=== PATIENT | male | born 1985 | race Caucasian/White ===

== ENCOUNTER → 2020-05-16 11:52 | Outpatient (BNVA) | payer SELFPAY | PROVIDERS: Visit Provider Nurse Practitioner Family | DX: R53.83 Other fatigue (principal); Z72.51 High risk heterosexual behavior; Z13.6 Encounter for screening for cardiovascular disorders; J45.909 Unspecified asthma, uncomplicated; Z20.5 Contact with and (suspected) exposure to viral hepatitis; R06.02 Shortness of breath; I44.7 Left bundle-branch block, unspecified; J45.41 Moderate persistent asthma with (acute) exacerbation | CPT/HCPCS: 80053; 80061; 82306; 82607; 84403; 84443; 85025; 86592; 86705; 86706; 86709; 86803; 87340; 87806 ==

== ENCOUNTER 2024-04-23 10:25 | Emergency (ER) | payer SELFPAY ==
--- NOTE | 2024-04-23 10:29 | XR_ITS ---
WS: [id number] XR shoulder RT min 2V* [id number] REASON FOR EXAM: pain FINDINGS: No fracture or focal bone lesion. The acromioclavicular joint space is intact. There is mild subchondral sclerosis and osteophytosis. The glenohumeral joint space is not well demonstrated. There does appear to be some narrowing with mild to moderate subchondral sclerosis of the glenoid and mild osteophytosis of the humeral head. XR/XR shoulder RT min 2V* [id number] IMPRESSION: Osteoarthritis of the glenohumeral joint above and certain severity possibly mo derate. Mild osteoarthritis of the acromioclavicular joint. No acute abnormality
[2024-04-23 10:30] VITALS: BP 136/89; PULSE 73; TEMP 36.5; O2SAT 99; BMI 30.7
--- NOTE | 2024-04-23 11:18 | W.ED.UPPEXIN ---
HPI - Extremity Injury (Upper) General: Chief Complaint: Extremity Injury, Upper Stated Complaint: right shoulder pain Time Seen by Provider: 04/23/24 10:59 Source: patient Mode of arrival: ambulatory Limitations: no limitations History of Present Illness: 38-year-old male presents to the ER complaining of right shoulder pain. Patient began noticing pain in the right shoulder on Tuesday and today he was throwing heavy logs and heard two pops in his right shoulder and immediately began having pain. Some mild parathesias to right arm. No color/temp changes noted. MD complaint: injury to: right and shoulder Onset (ago): hour(s) Other Extremity Injury: Right: arm and shoulder Other injuries: none Place: home Severity: moderate Severity scale (1-10): 6 Relieving factors: none Exacerbating factors: movement of extremity Associated symptoms: Reports no associated symptoms; Denies neck pain or weakness in extremities Related Data Previous Rx's ?Medication ?Instructions ?Recorded diclofenac sodium 50 mg 50 mg PO Q12H PRN pain #20 tabs 04/23/24 tablet,delayed release methylprednisolone 4 mg tablets in See Rx Instructions PO .COMPLEX 04/23/24 a dose pack (Medrol (Syd)) #21 ea Allergies Allergy/AdvReac Type Severity Reaction Status Date / Time No Known Allergies Allergy Verified 04/23/24 10:34 Review of Systems Const: Denies: fever(s), chills or body aches Eyes: Denies: change in vision Card: Denies: chest pain or palpitations Resp: Denies: dyspnea GI: Denies: abdominal pain Musc: Reports: joint pain (R shoulder) and limited range of motion (R shoulder); Denies: neck pain, back pain, extremity pain, extremity swelling, joint swelling, joint redness, joint warmth, joint stiffness or muscle cramps Neuro: Denies: headache(s), numbness in extremities, weakness in extremities or sensory changes PFSH ED PFSH: Medical History No active medical problems Surgical History No history of previous surgery Family History Mother Cancer Denies family history of Diabetes Hypertension Stroke Social History Smoking and tobacco/nicotine status: current every day tobacco/nicotine user Alcohol intake: never Substance/Drug Use: never Adopted: No Lives independently: Yes Household members: spouse Housing: House Marital status: Number of children: 4 Number of grandchildren: 1 Highest education level completed: 9th Grade service: No Current occupational status: employed Pets and animals: Yes Current gender identity: Male Physical Exam Const: COMMON NORMALS: no acute distress, average body habitus, patient oriented x3, no limitations, healthy appearing, alert and well nourished GENERAL APPEARANCE: cooperative ORIENTATION/CONSCIOUSNESS: Yes awake, Yes oriented to person, Yes oriented to place and Yes oriented to time Neck/C-Spine: COMMON NORMALS: full ROM GENERAL: Yes normal visual inspection CERVICAL SPINE: Yes cervical ROM normal, No Cervical spine tenderness and No Paracervical muscle tenderness Chest: COMMONS NORMALS: normal inspection of the chest Resp: COMMON NORMALS: clear to auscultation bilaterally EFFORT & INSPECTION: Yes able to speak in complete sentences AUSCULTATION: clear to auscultation bilaterally, no crackles and no rales Cardio: COMMON NORMALS: regular rate and regular rhythm RATE: regular rate RHYTHM: regular rhythm Back/Pelvis: COMMON NORMALS: thoracic and lumbar spine normal to inspection and no thoracic nor lumbar tenderness Extremity: COMMON NORMALS: capillary refill normal GENERAL: Yes normal exam except as noted RIGHT UPPER EXTREMITY: Yes shoulder joint (Right shoulder pain with palpation and ROM, bilateral radial pulses intact) Right shoulder: Yes palpation, Yes Right shoulder joint ROM exam (limited due to pain) and Yes Right shoulder joint neurovascular exam (normal) Neuro: COMMON NORMALS: patient oriented x3, moves all extremities, no focal motor deficits and no sensory deficits noted SENSORIUM/ORIENTATION: Yes alert, Yes oriented to person, Yes oriented to place and Yes oriented to time Course Vital Signs: Vital signs: Vital Signs Temperature 97.7 F 04/23/24 10:30 Pulse Rate 65 04/23/24 11:25 Respiratory Rate 18 04/23/24 11:25 Blood Pressure 144/96 04/23/24 11:25 Pulse Oximetry 98 04/23/24 11:25 Oxygen Delivery Me thod Room Air 04/23/24 10:30 MDM - Extremity Injury (Upper) Medical Decision Making XR showing no acute abnormalities. Will have case management set him up with PCP for further evaluation. May require MRI/physical therapy if symptoms do not improve. Will place on steroids/NSAIDS. Recommend ice/heat. Red flag symptoms with the patient such as fever, chills, pain out of proportion, complete loss of muscle strength discussed. Medical Records I reviewed the patient's medical records. Lab Data I reviewed the patient's lab results. Radiology Impressions Shoulder X-Ray 04/23/24 10:29 IMPRESSION: Osteoarthritis of the glenohumeral joint above and certain severity possibly moderate. Mild osteoarthritis of the acromioclavicular joint. No acute abnormality All radiology interpretation(s) finalized by discharge Discharge Plan Discharge Patient Disposition: Home Clinical Impression: Injury of right shoulder Qualifiers: Encounter type: initial encounter Qualified Code(s): S49.91XA - Unspecified injury of right shoulder and upper arm, initial encounter Condition: Stable Prescriptions: New diclofenac sodium 50 mg tablet,delayed release (DR/EC) 50 mg PO Q12H PRN (Reason: pain) Qty: 20 0RF methylprednisolone [Medrol (Syd)] 4 mg tablets,dose pack See Rx Instructions .ROUTE .COMPLEX Qty: 21 0RF Rx Instructions: orally per package directions Discharge Orders: Discharge ED (Routine); Ordered 04/23/24 Ordered By: Joyce Mclain Activity Restrictions/Additional Instructions: As we discussed, we will place you on anti-inflammatories and steroids. You may alternate ice and heat to help with your shoulder pain. Case management should contact you shortly to help set you up with your follow-up appointment with primary care for further evaluation of your shoulder pain. If this does not improve you may require additional evaluation including further imaging or physical therapy. Print Language: Belarusian Coding Level of Care Code ED Injection Molding Machine Offbearer for Hannah Johnston
[2024-04-23 11:25] VITALS: BP 144/96; PULSE 65; RESP 18; O2SAT 98
[2024-04-23 12:04] VITALS: BP 131/92; PULSE 62; RESP 18; O2SAT 97
--- NOTE | 2024-04-25 09:08 | DCPLANNER ---
sandra uribe to establish PCP
== END 2024-04-23 12:05 | disposition home or self-care (01) ==
PROVIDERS: Emergency Provider Physician Assistant
DX: S49.91XA Unspecified injury of right shoulder and upper arm, initial encounter (principal); Z72.0 Tobacco use; X50.0XXA Overexertion from strenuous movement or load, initial encounter
CPT/HCPCS: 73030; 99283

== ENCOUNTER 2025-01-20 11:55 | Emergency (ER) | payer SELFPAY ==
[2025-01-20 12:12] VITALS: BP 136/96; PULSE 90; RESP 18; TEMP 36.7; O2SAT 99; BMI 27.3
--- NOTE | 2025-01-20 12:18 | XRR_ITS ---
PROCEDURE INFORMATION: Exam: XR Right Foot Exam date and time: 01/20/2025 12:18 PM Age: 39 years old Clinical indication: Injury or trauma; Other: Stepped on a board with screws in it; Swelling (edema); Foot; Right TECHNIQUE: Imaging protocol: Radiologic exam of the right foot. Views: 3 or more views. COMPARISON: No relevant prior studies available. FINDINGS: Bones/joints: There is no fracture. Soft tissues: There is no foreign body. The soft tissues are unremarkable. XR/XR foot RT min 3V* [id number] IMPRESSION: No acute process
--- NOTE | 2025-01-20 12:18 | ED_ITS ---
HPI - Extremity Problem 2 General: Chief complaint: Extremity Injury, Lower Stated complaint: R foot pain Time Seen by Provider: 01/20/25 12:12 Source: patient Mode of arrival: ambulatory Limitations: no limitations History of Present Illness: 39-year-old male states that he had step ped on a board with screws in and on Tuesday. States he is wearing shoes had for puncture wound to bottom of his foot states he had some redness pain and increased swelling since then. States his pain is 8 out of 10. States he is unable to bear any weight on it. He denies any fevers. Related Data Previous Rx's ?Medication ?Instructions ?Recorded diclofenac sodium 50 mg 50 mg PO Q12H PRN pain #20 t abs 04/23/24 tablet,delayed release methylprednisolone 4 mg tablets in See Rx Instructions PO .COMPLEX 04/23/24 a dose pack (Medrol (Syd)) #21 ea cephalexin 500 mg capsule 500 mg PO TID 7 days #21 cap s 01/20/25 hydrocodone 5 mg-acetaminophen 325 1 tab PO Q6H PRN pa in #14 tabs 01/20/25 mg tablet sulfamethoxazole 800 1 tab PO BID 10 days #20 tab s 01/20/25 mg-trimethoprim 160 mg tablet (Bactrim DS) Allergies Allergy/AdvReac Type Severity Reaction Status Date / Time No Known Allergies Allergy Verified 04/23/24 10:34 Review of Systems 2 Musc: Reports: extremity pain PFSH ED 2 PFSH: Medical History No active medical problems Surgical History No history of previous surgery Family History Mother Cancer Denies family history of Diabetes Hypertension Stroke Social History Smoking and tobacco/nicotine status: current every day tobacco/nicotine user Alcohol intake: never Substance/Drug Use: never Adopted: No Lives independently: Yes Household members: spouse Housing: House Marital status: Number of children: 4 Number of grandchildren: 1 Highest education level completed: 9th Grade service: No Current occupational status: employed Pets and animals: Yes Current gender identity: Male Physical Exam 2 Const: COMMON NORMALS: no acute distress, patient oriented x3 and healthy appearing HENMT: COMMON NORMALS: normocephalic and atraumatic HEAD & SCALP: n ormocephalic and atraumatic Neck/C-Spine: COMMON NORMALS: full ROM and supple Chest: COMMONS NORMALS: normal inspection of the chest Resp: COMMON NORMALS: normal respiratory effort Cardio: COMMON NORMALS: regular rate, regular rhythm and No murmurs present (Cardio) RATE: regular rate RHYTHM: regular rhythm Extremity: COMMON NORMALS: full ROM NARRATIVE EXTREMITY EXAM: 4 puncture wounds to plantar surface of right foot does have swelling to the foot along with erythema Neuro: COMMON NORMALS: patient oriented x3, moves all extremities and no focal motor deficits Psych: COMMON NORMALS: mental status grossly normal, Normal thought process present and cooperative THOUGHT PROCESS: Normal thought process present Skin: COMMON NORMALS: no rashes or lesions noted GENERAL SKIN EXAM: no rashes or lesions noted Course 2 Vital Signs: Vital signs: Vital Signs Temperature 98.1 F 01/20/25 12:12 Pulse Rate 90 01/20/25 12:12 Respiratory Rate 18 01/20/25 12:12 Blood Pressure 136/96 01/20/25 12:12 Pulse Oximetry 99 01/20/25 12:12 Oxygen Delivery Me thod Room Air 01/20/25 12:12 MDM - Extremity (Nontraumatic) Medical Decision Making Patient presents after stepping on screws to his right foot. He was wearing his shoes. Patient here does have a cellulitis he has no signs of necrotizing fasciitis do not see any signs of foreign body. White count here is normal he is afebrile did give him IV vancomycin will prescribe him pain medicine along with antibiotics for home. I did speak to food and beverage associate Dr. Jauregui patient is to follow-up with podiatry return if worsening he understands agrees to plan. Medical Records I reviewed the patient's medical records. Lab Data I reviewed the patient's lab results. 01/20/25 12:30 01/20/25 12:30 Radiology Impressions Foot X-Ray 01/20/25 12:18 IMPRESSION: No acute process Laboratory Results WBC 9.02 10^3/uL (3.29-11.43) 01/20/25 12:30 RBC 5.62 10^6/uL (3.85-5.65) 01/20/25 12: Hgb 16.50 g/dL (11.27-16.99) 01/20/25 12: Hct 46.1 % (37-53) 01/20/25 12: MCV 82.0 fl (82-101) 01/20/25 12: MCH 29.4 pg (27-33) 01/20/25 12: MCHC 35.8 g/dL (30-55) 01/20/25 12: RDW 12.7 % (12.1-15.1) 01/20/25 12: Plt Count 233 10^3/cmm (157-399) 01/20/25 12: MPV 8.9 fL (7.4-10.4) 01/20/25 12: Neut % (Auto) 60.4 % 01/20/25 12: Lymph % (Auto) 27.6 % 01/20/25 12: [place] % (Auto) 9.8 % 01/20/25 12: Eos % (Auto) 1.8 % 01/20/25 12: Baso % (Auto) 0.3 % 01/20/25 12: Neut # (Auto) 5.45 10^3/uL (1.8-7.7) 01/20/25 12: Lymph # (Auto) 2.5 10^3/uL (0.8-4.8) 01/20/25 12: [place] # (Auto) 0.9 10^3/uL (0.2-0.9) 01/20/25 12: Eos # (Auto) 0.2 10^3/uL (0.0-0.8) 01/20/25 12: Baso # (Auto) 0.0 10^3/uL (0.0-0.1) 01/20/25 12: Nucleated RBC % (auto) 0 % 01/20/25 12: Nucleated RBCs # 0.0 /100WBC 01/20/25 12: ESR 5 mm/hr (0-10) 01/20/25 12: Sodium 136 mmol/L (136-145) 01/20/25 12: Potassium 4.5 mmol/L (3.5-5.1) 01/20/25 12:30 Chloride 99 mmol/L (98-107) 01/20/25 12:30 Carbon Dioxide 26 mmol/L (22-29) 01/20/25 12:30 Anion Gap 15.5 (5-19) 01/20/25 12:30 BUN 11 mg/dL (6-20) 01/20/25 12:30 Creatinine 0.7 mg/dL (0.7-1.2) 01/20/25 12:30 GFR Calculation 124.9 mL/min (90-130) 01/20/25 12:30 Glucose 105 mg/dL (65-115) 01/20/25 12:30 Calculated Osmolality 282 mOsm/kg (285-295) L 01/20/25 12:30 Calcium 9.6 mg/dL (8.5-10.5) 01/20/25 12:30 Total Bilirubin 1.1 mg/dL (0.15-1.2) 01/20/25 12:30 AST 16 U/L (0-40) 01/20/25 12:30 ALT 20 U/L (0-41) 01/20/25 12:30 Alkaline Phosphatase 70 U/L (40-130) 01/20/25 12:30 C-Reactive Protein 84.3 mg/L (0.0-4.9) H 01/20/25 12:30 Total Protein 7.9 g/dL (6.6-8.7) 01/20/25 12:30 Albumin 4.5 g/dL (3.5-5.2) 01/20/25 12:30 Globulin 3.4 g/dL (1.3-4.6) 01/20/25 12:30 All radiology interpretation(s) finalized by discharge Discharge Plan Discharge Patient Disposition: Home Clinical Impression: Puncture wound of foot, right, Cellulitis of foot, right Condition: Stable Prescriptions: New hydrocodone-acetaminophen 5-325 mg tablet 1 tab PO Q6H PRN (Reason: pain) Qty: 14 0RF sulfamethoxazole-trimethoprim [Bactrim DS] 800-160 mg tablet 1 tab PO BID 10 Days Qty: 20 0RF cephalexin 500 mg capsule 500 mg PO TID 7 Days Qty: 21 0RF No Action diclofenac sodium 50 mg tablet,delayed release (DR/EC) 50 mg PO Q12H PRN (Reason: pain) Qty: 20 0RF methylprednisolone [Medrol (Syd)] 4 mg tablets,dose pack See Rx Instructions .ROUTE .COMPLEX Qty: 21 0RF Rx Instructions: orally per package directions Discharge Orders: Discharge ED (Routine); Ordered 01/20/25 Ordered By: Maria M Caldera Referrals: Mihai Jauregui DPM [Physician, Podiatry] - 4-7 days Discharge Diet: Advance as tolerated Discharge Activity: Resume usual activity Patient Instructions: Cellulitis (ED), Opioid Safety Print Language: Occitan Coding Level of Care Code ED Price Lister for Hannah Johnston
[2025-01-20] MEDS: HYDROmorphone 0.5 MG/0.5 ML INJ 1 MG IVP (12:33)
[2025-01-20] MEDS: ondansetron 2 mg/ML SDV 2 mL 4 MG IVP (12:33)
[2025-01-20] MEDS: tetanus-dipt-pertussis 0.5 mL SDV IM (12:36)
[2025-01-20 12:41] LABS: Hematocrit 46.1 % (37-53); Hemoglobin 16.50 g/dL (11.27-16.99); Mean Corpuscular HGB Conc 35.8 g/dL (30-55); Mean Corpuscular Hemoglobin 29.4 pg (27-33); Mean Corpuscular Volume 82.0 fl (82-101); Nucleated Red Blood Cells % 0 %; Platelet Count 233 10^3/cmm (157-399); Red Blood Count 5.62 10^6/uL (3.85-5.65); White Blood Count 9.02 10^3/uL (3.29-11.43)
[2025-01-20 13:02] LABS: Alanine Aminotransferase 20 U/L (0-41); Albumin Level 4.5 g/dL (3.5-5.2); Alkaline Phosphatase 70 U/L (40-130); Anion Gap 15.5 (5-19); Aspartate Amino Transferase 16 U/L (0-40); Blood Urea Nitrogen 11 mg/dL (6-20); Calcium 9.6 mg/dL (8.5-10.5); Carbon Dioxide 26 mmol/L (22-29); Chloride 99 mmol/L (98-107); Globulin 3.4 g/dL (1.3-4.6); Glucose 105 mg/dL (65-115); Osmolality Calculated 282 mOsm/kg (285-295); Potassium 4.5 mmol/L (3.5-5.1); Sodium 136 mmol/L (136-145); Total Protein 7.9 g/dL (6.6-8.7)
[2025-01-20 13:15] VITALS: PULSE 86; O2SAT 99
[2025-01-20 13:56] VITALS: PULSE 86; O2SAT 99
--- NOTE | 2025-01-21 08:16 | DCPLANNER ---
messaged podiatry for er f/u
== END 2025-01-20 13:58 | disposition home or self-care (01) ==
PROVIDERS: Emergency Provider Emergency Medicine
DX: S91.331A Puncture wound without foreign body, right foot, initial encounter (principal); L03.115 Cellulitis of right lower limb; Z72.0 Tobacco use; W22.8XXA Striking against or struck by other objects, initial encounter
CPT/HCPCS: 36415; 73630; 80053; 85025; 85651; 86140; 87040; 90471; 90715; 96365; 96375; 99284; E0114; J1171; J2405; J3373; J7050